=== PATIENT | male | born 1935 | race Asian ===

== ENCOUNTER 2020-05-25 16:10 | Outpatient (CLI) | payer OTHER | END 2020-05-25 21:01 | disposition home or self-care (01) | LOC: CT 16:10 | DX: F17.210 Nicotine dependence, cigarettes, uncomplicated (principal) | CPT/HCPCS: G0297-TC ==

== ENCOUNTER → 2020-06-05 | Emergency (ER) | payer OTHER ==
[~2020-06-05] VITALS: Ht 172.7 cm; Wt 68.0 kg
[~2020-06-05] MED LIST: ASA LOW DOSE81 MG PO
[2020-06-05 03:33] VITALS: TEMP 98.9
[2020-06-05 06:21] VITALS: BP 100/64
== END ==
LOC: ED 03:25
PROC: 0HQ1XZZ Repair Face Skin, External Approach (ICD-10-PCS; principal; 2020-06-05)
DX: S01.81XA Laceration without foreign body of other part of head, initial encounter (principal); S00.83XA Contusion of other part of head, initial encounter; S00.03XA Contusion of scalp, initial encounter; W01.198A Fall on same level from slipping, tripping and stumbling with subsequent striking against other object, initial encounter; Y92.89 Other specified places as the place of occurrence of the external cause
CPT/HCPCS: 99283

== ENCOUNTER 2020-06-18 15:19 | Emergency (ER) | payer OTHER ==
[~2020-06-18] VITALS: Ht 172.7 cm; Wt 68.0 kg
[2020-06-18 17:05] VITALS: BP 115/63; TEMP 98.2
== END 2020-06-18 17:05 | disposition home or self-care (01) ==
LOC: ED 15:19
DX: Z48.02 Encounter for removal of sutures (principal)

== ENCOUNTER 2020-11-28 14:43 | Inpatient (IN) | payer OTHER, BC ==
[~2020-11-28] VITALS: Ht 172.7 cm; Wt 59.1 kg
[2020-11-28 14:48] VITALS: BP 162/58; TEMP 98
[2020-11-28 15:10] LABS: PLATELET COUNT 264 K/uL (142-355)
[2020-11-28 15:15] LABS: POTASSIUM 4.2 mmol/L (3.6-5.2); SODIUM 138 mmol/L (136-145)
[2020-11-28 17:45] VITALS: BP 141/65; TEMP 97.5; Ht 172.7 cm; Wt 59.1 kg
[2020-11-28] MEDS ORDERED: CLOP75TA2 PO (18:09)
[2020-11-28] MEDS ORDERED: LISI5TAB10 PO (18:10)
[2020-11-28] MEDS ORDERED: SIMV40TA57 (18:10)
[2020-11-28] MEDS ORDERED: SPIRIVA RE2.5 MCG/AC INH (18:11)
[2020-11-28] MEDS ORDERED: ANORO ELLIPTA 61 AER INH (18:13)
[2020-11-28] MEDS ORDERED: IPRAAER INH (18:15)
[2020-11-28 20:00] VITALS: BP 118/40; TEMP 98
[2020-11-29] VITALS: BP 140/55; TEMP 98.5
[2020-11-29 04:00] VITALS: BP 131/72; TEMP 99.2
[2020-11-29 07:09] LABS: PLATELET COUNT 237 K/uL (142-355)
[2020-11-29 08:00] VITALS: BP 138/66; TEMP 98.1
[2020-11-29 12:00] VITALS: BP 123/41; TEMP 97.8
[2020-11-29 16:42] VITALS: BP 151/49; TEMP 97.7
[2020-11-29 20:00] VITALS: BP 125/47; TEMP 97.3
[2020-11-30] VITALS: BP 155/51; TEMP 98.3
[2020-11-30 04:00] VITALS: BP 99/52; TEMP 98.6
[2020-11-30 05:10] LABS: PLATELET COUNT 246 K/uL (142-355)
[2020-11-30 05:32] LABS: POTASSIUM 3.8 mmol/L (3.6-5.2)
[2020-11-30 08:00] VITALS: BP 86/64; TEMP 98.6
[2020-11-30 12:00] VITALS: BP 85/51; TEMP 98.5
[2020-11-30 16:00] VITALS: BP 132/44; TEMP 98.2
[2020-11-30 20:00] VITALS: BP 143/55; TEMP 97.6
[2020-12-01] VITALS: BP 152/51; TEMP 99
[2020-12-01 04:00] VITALS: BP 141/47; TEMP 98.6
[2020-12-01 06:15] LABS: POTASSIUM 3.7 mmol/L (3.6-5.2)
[2020-12-01 08:00] VITALS: BP 155/54; TEMP 98.5
[2020-12-01 12:00] VITALS: BP 182/68; TEMP 97.9
== END 2020-12-01 17:50 | disposition home health service (06) | DRG 558 ==
LOC: ED 14:43 → MED/SURG 16:00
PROVIDERS: Internal Medicine; ADMIT Hospitalist; ATTEND Internal Medicine Endocrinology, Diabetes & Metabolism
DX: M62.82 Rhabdomyolysis (principal); Z91.81 History of falling; R07.89 Other chest pain; J44.9 Chronic obstructive pulmonary disease, unspecified; Z86.73 Personal history of transient ischemic attack (TIA), and cerebral infarction without residual deficits; R00.1 Bradycardia, unspecified; I95.89 Other hypotension; E78.49 Other hyperlipidemia; I10 Essential (primary) hypertension; K21.9 Gastro-esophageal reflux disease without esophagitis; F03.90 Unspecified dementia, unspecified severity, without behavioral disturbance, psychotic disturbance, mood disturbance, and anxiety; I25.10 Atherosclerotic heart disease of native coronary artery without angina pectoris
CPT/HCPCS: 36415; 80048; 80053; 80320; 81000; 82550; 82553; 82948; 83880; 84484; 85027; 85610; 85730; 87635; 93005; 94667; 94668; 94760; 96360; 96366; 96372; 96374; 96375; 99284; J1100; J1650; Q9963; U0003

== ENCOUNTER 2020-12-07 10:37 | Outpatient (CLI) | payer OTHER ==
[~2020-12-07 10:37] MED LIST changes: +ANORO ELLIPTA 61 AER INH; +CLOP75TA2 PO; +IPRAAER INH; +LISI5TAB10 PO; +SIMV40TA57; +SPIRIVA RE2.5 MCG/AC INH
== END 2020-12-07 19:38 | disposition home or self-care (01) ==
LOC: CT 10:37
PROVIDERS: ATTEND Internal Medicine Pulmonary Disease
DX: R63.4 Abnormal weight loss (principal); R06.02 Shortness of breath

== ENCOUNTER 2020-12-08 11:30 | Inpatient (IN) | payer OTHER | END 2020-12-13 11:15 | disposition still patient (30) | LOC: PAVC 11:30 | PROVIDERS: ADMIT Internal Medicine; ATTEND Internal Medicine | DX: M62.82 Rhabdomyolysis (principal); J44.9 Chronic obstructive pulmonary disease, unspecified; R48.8 Other symbolic dysfunctions; M62.81 Muscle weakness (generalized); Z74.1 Need for assistance with personal care; R26.81 Unsteadiness on feet; E78.5 Hyperlipidemia, unspecified; K21.9 Gastro-esophageal reflux disease without esophagitis; F03.90 Unspecified dementia, unspecified severity, without behavioral disturbance, psychotic disturbance, mood disturbance, and anxiety; R63.4 Abnormal weight loss | CPT/HCPCS: 80053; 80061; 82306; 82607; 82728; 83540; 84153; 84443; 85027; 87081 ==

== ENCOUNTER 2020-12-09 07:13 | Outpatient (CLI) | payer OTHER ==
[2020-12-09 07:57] LABS: PLATELET COUNT 291 K/uL (142-355)
[2020-12-09 08:19] LABS: POTASSIUM 4.1 mmol/L (3.6-5.2)
== END 2020-12-09 20:02 | disposition home or self-care (01) ==
LOC: LAB 07:13
PROVIDERS: ATTEND Internal Medicine
DX: Z00.00 Encounter for general adult medical examination without abnormal findings (principal)
CPT/HCPCS: 80053; 80061; 82306; 82607; 82728; 83540; 84153; 84443; 85027; 87081

== ENCOUNTER 2020-12-13 11:30 | Inpatient (IN) | payer OTHER | END 2021-01-11 16:30 | disposition home health service (06) | LOC: PAVC 11:30 | PROVIDERS: ADMIT Internal Medicine; ATTEND Internal Medicine | DX: M62.82 Rhabdomyolysis (principal); J44.9 Chronic obstructive pulmonary disease, unspecified; R48.8 Other symbolic dysfunctions; M62.81 Muscle weakness (generalized); Z74.1 Need for assistance with personal care; R26.81 Unsteadiness on feet; E78.5 Hyperlipidemia, unspecified; K21.9 Gastro-esophageal reflux disease without esophagitis; F03.90 Unspecified dementia, unspecified severity, without behavioral disturbance, psychotic disturbance, mood disturbance, and anxiety; R63.4 Abnormal weight loss ==

== ENCOUNTER 2021-10-27 12:24 | Inpatient (IN) | payer OTHER ==
[~2021-10-27] VITALS: Ht 172.7 cm; Wt 54.9 kg
[2021-10-27] VITALS (9 sets, daily range): BP systolic 92–158; BP diastolic 46–88; TEMP 98.8–103
[2021-10-27 14:11] LABS: PLATELET COUNT 255 K/uL (142-355)
[2021-10-27 14:22] LABS: POTASSIUM 3.4 mmol/L (3.6-5.2)
[2021-10-28] VITALS (8 sets, daily range): BP systolic 97–155; BP diastolic 47–60; TEMP 97.6–99.5; Ht 172.7 cm; Wt 54.9 kg
[2021-10-28 05:12] LABS: PLATELET COUNT 204 K/uL (142-355)
[2021-10-28 05:21] LABS: POTASSIUM 3.3 mmol/L (3.6-5.2)
[2021-10-29 00:18] VITALS: BP 136/58; TEMP 98.3
[2021-10-29 04:22] VITALS: BP 148/56; TEMP 97.5
[2021-10-29 08:23] VITALS: BP 143/64; TEMP 97
[2021-10-29 09:15] LABS: PLATELET COUNT 243 K/uL (142-355)
[2021-10-29 09:24] LABS: POTASSIUM 3.1 mmol/L (3.6-5.2)
[2021-10-29 12:00] VITALS: BP 123/53; TEMP 97.2
[2021-10-29 16:00] VITALS: BP 86/54; TEMP 98.9
[2021-10-29 20:00] VITALS: BP 127/53; TEMP 98.6
[2021-10-30] VITALS: BP 141/62; TEMP 99.2
[2021-10-30 04:00] VITALS: BP 128/56; TEMP 98.9
[2021-10-30 05:28] LABS: PLATELET COUNT 232 K/uL (142-355)
[2021-10-30 05:41] LABS: POTASSIUM 3.1 mmol/L (3.6-5.2)
[2021-10-30 08:00] VITALS: BP 98/51; TEMP 98.3
[2021-10-30 12:00] VITALS: BP 116/52; TEMP 98.7
[2021-10-30 16:00] VITALS: BP 106/55; TEMP 98.4
[2021-10-30 20:00] VITALS: BP 86/49; TEMP 98.5
[2021-10-31] VITALS (7 sets, daily range): BP systolic 81–174; BP diastolic 47–76; TEMP 97.8–98.8
[2021-10-31 05:49] LABS: PLATELET COUNT 220 K/uL (142-355)
[2021-10-31 05:57] LABS: POTASSIUM 3.2 mmol/L (3.6-5.2)
[2021-11-01] VITALS: BP 157/66; TEMP 97.9
[2021-11-01 04:00] VITALS: BP 153/63; TEMP 98.1
[2021-11-01 05:18] LABS: PLATELET COUNT 247 K/uL (142-355)
[2021-11-01 05:40] LABS: POTASSIUM 3.4 mmol/L (3.6-5.2)
[2021-11-01 08:00] VITALS: BP 95/63; TEMP 97.7
[2021-11-01 12:00] VITALS: BP 91/62; TEMP 97.3
[2021-11-01 16:00] VITALS: BP 92/61; TEMP 98.3
[2021-11-01 20:00] VITALS: BP 145/69; TEMP 97.9
[2021-11-02] VITALS: BP 153/70; TEMP 97.9
[2021-11-02 04:00] VITALS: BP 145/66; TEMP 97.9
[2021-11-02 05:52] LABS: PLATELET COUNT 281 K/uL (142-355)
[2021-11-02 06:21] LABS: POTASSIUM 4.1 mmol/L (3.6-5.2)
[2021-11-02 08:00] VITALS: BP 114/60; TEMP 97.6
[2021-11-02 12:00] VITALS: BP 100/64; TEMP 97.8
[2021-11-02 16:00] VITALS: BP 107/65; TEMP 98
[2021-11-02 20:00] VITALS: BP 99/67; TEMP 98.8
[2021-11-03] VITALS: BP 148/67; TEMP 96.7
[2021-11-03 04:00] VITALS: BP 87/58; TEMP 97.3
[2021-11-03 04:42] LABS: PLATELET COUNT 339 K/uL (142-355)
[2021-11-03 05:01] LABS: POTASSIUM 4.2 mmol/L (3.6-5.2)
[2021-11-03 08:00] VITALS: BP 145/65; TEMP 97.8
[2021-11-03] MEDS ORDERED: VITAMIN D50000 UNIT PO (10:09)
[2021-11-03] MEDS ORDERED: FAMOTIDINE20 MG PO (10:10)
[2021-11-03] MEDS ORDERED: ZINC220C4 PO (10:11)
== END 2021-11-03 13:15 | DRG 177 ==
LOC: ED 12:24 → MED/SURG 16:40
PROVIDERS: Emergency Medicine; ADMIT Internal Medicine Endocrinology, Diabetes & Metabolism; ATTEND Internal Medicine Endocrinology, Diabetes & Metabolism
DX: U07.1 COVID-19 (principal); J12.82 Pneumonia due to coronavirus disease 2019; J96.01 Acute respiratory failure with hypoxia; E87.0 Hyperosmolality and hypernatremia; E87.6 Hypokalemia; Z86.73 Personal history of transient ischemic attack (TIA), and cerebral infarction without residual deficits; I25.10 Atherosclerotic heart disease of native coronary artery without angina pectoris; J44.9 Chronic obstructive pulmonary disease, unspecified; G30.8 Other Alzheimer's disease; E87.8 Other disorders of electrolyte and fluid balance, not elsewhere classified
CPT/HCPCS: 36415; 80053; 83605; 83735; 83880; 84484; 85027; 85379; 85610; 85730; 87040; 87635; 93005; 94760; 96360; 96365; 99284; J0456; J0696; J3480; Q9963; U0003

== ENCOUNTER 2021-11-24 10:20 | Emergency (ER) | payer OTHER ==
[~2021-11-24] VITALS: Ht 172.7 cm; Wt 54.9 kg
[2021-11-24 10:20] VITALS: TEMP 97.8
[~2021-11-24 10:20] MED LIST changes: +FAMOTIDINE20 MG PO; +VITAMIN D50000 UNIT PO; +ZINC220C4 PO
[2021-11-24 11:04] LABS: PLATELET COUNT 236 K/uL (142-355)
[2021-11-24 11:21] LABS: PARTIAL THROMBOPLASTIN TIME 21.1 SECONDS (24.5-33.6)
[2021-11-24 12:40] VITALS: BP 90/54
== END 2021-11-24 12:40 | disposition home or self-care (01) ==
LOC: ED 10:20
PROVIDERS: Emergency Medicine
DX: R55 Syncope and collapse (principal)
CPT/HCPCS: 80053; 83880; 84484; 85027; 85610; 85730; 93005; 99283